=== PATIENT | female | born 1950 | race Caucasian/White ===

== ENCOUNTER 2016-11-27 10:57 | Emergency (ER) | payer MEDICARE ==
[2016-11-27 11:09] VITALS: BMI 28.3
--- NOTE | 2016-11-27 11:32 | PDOC ---
History of Present Illness - General History Source: Patient Exam Limitations: No Limitations - History of Present Illness Initial Comments: 11/27/16 11:52 The patient is a 66-year-old woman, with a significant past medical history of hypertension, hypercholesterolemia and breast Ca who presents to the emergency department via walk-in for further evaluation of a persistent 2-3 day history of cold-like symptoms. As per patient, she reports she has been experiencing intermittent fevers with an associated intermittent cough, chills, generalized body aches and nausea. Patient admits she received her pneumococcal vaccine but she did not receive her influenza vaccination this season. She denies rhinorrhea , nasal congestion, ear pain, shortness of breath, chest pain, palpitations. She denies abdominal pain, vomiting, diarrhea. She denies any urinary symptoms. <Mayr Cancino - Last Filed: 11/27/16 13:44> <Vishal Hills - Last Filed: 11/28/16 09:16> - General Chief Complaint: Cold Symptoms Stated Complaint: FEVER, CHILLS, COUGH Past History <Mary Cancino - Last Filed: 11/27/16 13:44> - Past Medical History Cancer: Yes (breast) HTN: Yes Suicide Attempt (Hx): No - Immunization History Immunization Up to Date: Yes - Psycho/Social/Smoking Cessation Hx Anxiety: No Suicidal Ideation: No Smoking History: Never smoked Hx Alcohol Use: No Drug/Substance Use Hx: No Substance Use Type: None <Vishal Hills - Last Filed: 11/28/16 09:16> - Past Medical History Allergies/Adverse Reactions: Allergies Allergy/AdvReac Type Severity Reaction Status Date / Time No Known Allergies Allergy Verified 11/27/16 11:02 Home Medications: Ambulatory Orders Metoprolol Tartrate [Lopressor -] 25 mg PO BID 01/13/15 Ibuprofen [Motrin -] 600 mg PO QID PRN #120 tablet 11/27/16 Oseltamivir Phosphate [Tamiflu] 75 mg PO BID #10 capsule 11/27/16 Review of Systems - Review of Systems Able to Perform ROS?: Yes Comments:: 11/27/16 11:52 GENERAL/CONSTITUTIONAL: Yes: +Fever(100.3 in triage) +Chills. +Generalized body aches HEAD, EYES, EARS, NOSE AND THROAT: No change in vision. No ear pain or discharge. No sore throat. CARDIOVASCULAR: No chest pain or shortness of breath. RESPIRATORY: Yes: +Cough No wheezing, or hemoptysis. GASTROINTESTINAL: Yes: +Nausea. No vomiting, diarrhea or constipation. GENITOURINARY: No dysuria, frequency, or change in urination. MUSCULOSKELETAL: No joint or muscle swelling or pain. No neck or back pain. SKIN: No rash NEUROLOGIC: Yes: +Headache. No vertigo, loss of consciousness, or change in strength/sensation. ENDOCRINE: No increased thirst. No abnormal weight change. HEMATOLOGIC/LYMPHATIC: No anemia, easy bleeding, or history of blood clots. ALLERGIC/IMMUNOLOGIC: No hives or skin allergy. <Mary Cancino - Last Filed: 11/27/16 13:44> *Physical Exam - Vital Signs Last Vital Signs Temp Pulse Resp BP Pulse Ox 100.3 F H 79 20 138/77 98 11/27/16 10:59 11/27/16 10:59 11/27/16 10:59 11/27/16 10:59 11/27/16 10:59 - Physical Exam Comments: 11/27/16 11:52 GENERAL: Awake, alert, and fully oriented, in no acute distress HEAD: No signs of trauma EYES: PERRLA, EOMI, sclera anicteric, conjunctiva clear ENT: Auricles normal inspection, hearing grossly normal, nares patent, oropharynx clear without exudates. Moist mucosa NECK: Normal ROM, supple, no lymphadenopathy, JVD, or masses LUNGS: No wheezes, and no crackles HEART: Regular rate and rhythm, normal S1 and S2, no murmurs, rubs or gallops ABDOMEN: Soft, nontender, normoactive bowel sounds. No guarding, no rebound. No masses EXTREMITIES: Normal range of motion, no edema. No clubbing or cyanosis. No cords, erythema, or tenderness NEUROLOGICAL: Cranial nerves II through XII grossly intact. Normal speech. <Mary Cancino - Last Filed: 11/27/16 13:44> - Vital Signs Last Vital Signs Temp Pulse Resp BP Pulse Ox 100.3 F H 79 20 138/77 98 11/27/16 10:59 11/27/16 10:59 11/27/16 10:59 11/27/16 10:59 11/27/16 10:59 <Vishal Hills - Last Filed: 11/28/16 09:16> ED Treatment Course - LABORATORY CBC & Chemistry Diagram: 11/27/16 12:10 11/27/16 12:22 - RADIOLOGY Radiograph Interpretation: 11/27/16 13:45 EXAM: RAD/CHEST PA & LAT Reviewed by Dr. Vishal Hills Interpreted by Dr. Elian Khan IMPRESSION: No acute pathology <Mary Cancino - Last Filed: 11/27/16 13:44> - LABORATORY CBC & Chemistry Diagram: 11/27/16 12:10 11/27/16 12:22 <Vishal Hills - Last Filed: 11/28/16 09:16> *DC/Admit/Observation/Transfer - Attestations Scribe Attestion: 11/27/16 11:52 Documentation prepared by Mary Cancino, acting as medical assistant internal medicine for Vishal Hills MD. <Mary Cancino - Last Filed: 11/27/16 13:44> - Discharge Dispostion Admit: No <Vishal Hills - Last Filed: 11/28/16 09:16> Diagnosis at time of Disposition: Influenza - Discharge Dispostion Disposition: HOME Condition at time of disposition: Stable - Prescriptions Prescriptions: Ibuprofen [Motrin -] 600 mg PO QID PRN #120 tablet PRN Reason: Fever Oseltamivir Phosphate [Tamiflu] 75 mg PO BID #10 capsule - Referrals Referrals: Thao German NP [Primary Care Provider] - - Patient Instructions Printed Discharge Instructions: Influenza Print Language: MALAYSIAN
[2016-11-27] MEDS ORDERED: SODIUM CHLORIDE 1,000 ML IV STA (11:51)
[2016-11-27] MEDS ORDERED: ACETAMINOPHEN 325 MG TABLET (FP) PO ONE (11:53)
[2016-11-27] MEDS ORDERED: ONDANSETRON 4 MG/2 ML VIAL IVPUSH ONE (11:55)
[2016-11-27] MEDS ORDERED: ACETAMINOPHEN 325 MG TABLET (FP) ONE (11:59)
[2016-11-27] MEDS ORDERED: ONDANSETRON 4 MG/2 ML VIAL ONE (11:59)
[2016-11-27 12:41] LABS: BASOPHIL 0.4 % (0-2.0); EOSINOPHIL 0.3 % (0-4.5); MCH 26.8 pg (25.7-33.7); MCHC 32.3 g/dl (32.0-36.0); MEAN PLT VOLUME 9.6 fl (7.5-11.1); NEUTROPHILS 84.6 % (42.8-82.8); PLATELET COUNT 182 K/MM3 (134-434); WHITE BLOOD COUNT 7.9 K/mm3 (4.0-10.0)
[2016-11-27 12:42] LABS: URINE APPEARANCE CLEAR; URINE BILIRUBIN NEGATIVE (NEGATIVE); URINE BLOOD NEGATIVE (NEGATIVE); URINE COLOR LTYELLOW; URINE GLUCOSE (UA) NEGATIVE (NEGATIVE); URINE KETONE NEGATIVE (NEGATIVE); URINE NITRITE NEGATIVE (NEGATIVE); URINE PROTEIN NEGATIVE (NEGATIVE); URINE UROBILINOGEN NEGATIVE E.U./dl (0.2-1.0)
[2016-11-27 12:45] LABS: URINE LEUK ESTERASE 2+ (NEGATIVE)
[2016-11-27 12:48] LABS: URINE BACTERIA RARE /hpf (NONE SEEN); URINE HYALINE CAST 1 /lpf; URINE MUCUS RARE; URINE RBC 3 /hpf (0-3); URINE WBC 27 /hpf (3-5)
[2016-11-27] MEDS ORDERED: OSELTAMIVIR PHOSPHATE 75 MG CAPSULE PO ONE (13:01)
[2016-11-27] MEDS ORDERED: OSELTAMIVIR PHOSPHATE 75 MG CAPSULE ONE (13:09)
[2016-11-27 13:25] LABS: ALBUMIN 3.6 g/dl (3.4-5.0); ANION GAP 7 (8-16); CALCIUM 8.5 mg/dL (8.5-10.1); CO2 28 mmol/L (21-32); CREATININE 0.7 mg/dL (0.55-1.02); GLUCOSE,RANDOM 94 mg/dL (74-106); SGOT/AST 22 U/L (15-37); SGPT/ALT 28 U/L (12-78)
[2016-11-27 13:27] LABS: ALK PHOS 56 U/L (45-117); BILIRUBIN,TOTAL 0.4 mg/dL (0.2-1.0); TOT PROT 7.6 g/dl (6.4-8.2)
[2016-11-27 15:02] VITALS: BP 108/72; PULSE 67; TEMP 100.1
== END 2016-11-27 15:01 | disposition home or self-care (01) ==
LOC: JER 10:57
PROC: 3E0337Z Introduction of Electrolytic and Water Balance Substance into Peripheral Vein, Percutaneous Approach (ICD-10-PCS; principal; 2016-11-27)
PROC: 3E033GC Introduction of Other Therapeutic Substance into Peripheral Vein, Percutaneous Approach (ICD-10-PCS; 2016-11-27)
DX: J09.X2 Influenza due to identified novel influenza A virus with other respiratory manifestations (principal); I10 Essential (primary) hypertension; E78.00 Pure hypercholesterolemia, unspecified; Z85.3 Personal history of malignant neoplasm of breast
CPT/HCPCS: 36415; 71020-TC; 80053; 81003; 81015; 83605; 85025; 87040; 87086; 87804; 99282-25

== ENCOUNTER 2024-12-08 13:07 | Emergency (ER) | payer MEDICARE, OTHER ==
[2024-12-08 13:17] VITALS: BP 160/75; PULSE 68; RESP 18; TEMP 97.4; BMI 29.2
[2024-12-08] MEDS ORDERED: METOCLOPRAMIDE HCL INJECTION 10 MG/2 ML VIAL ONE (14:05)
[2024-12-08] MEDS ORDERED: ACETAMINOPHEN INJECTION 100 ML ONE (14:05)
[2024-12-08 14:26] LABS: BASO % 0.5 % (0-2.0); EOS % 2.1 % (0-4.5); HEMATOCRIT 44.1 % (32.4-45.2); HEMOGLOBIN 14.3 GM/dL (10.7-15.3); LYMPH % 24.6 % (8-40); MCH 27.1 pg (25.7-33.7); MCHC 32.4 g/dl (32.0-36.0); MEAN CELL VOLUME 83.8 fl (80-96); MEAN PLT VOLUME 9.4 fl (7.5-11.1); MONO % 5.3 % (3.8-10.2); NEUT % 67.5 % (42.8-82.8); PLATELET COUNT 234 10^3/uL (134-434); RBC 5.27 M/mm3 (3.60-5.2); RDW 13.6 % (11.6-15.6); WHITE BLOOD COUNT 8.6 K/mm3 (4.0-10.0)
[2024-12-08] MEDS: SODIUM CHLORIDE 0.9% 500 ML INFUS.BAG IV ONE (14:28)
[2024-12-08] MEDS: ACETAMINOPHEN 1000 MG/100 ML BAG IVPB ONE (14:28)
[2024-12-08] MEDS: METOCLOPRAMIDE HCL INJECTION 10 MG/2 ML VIAL IVPB ONE (14:58)
[2024-12-08 15:48] LABS: CHLORIDE 106 mmol/L (98-107); POTASSIUM 3.9 mmol/L (3.5-5.1); SODIUM 140 mmol/L (136-145)
[2024-12-08 15:50] LABS: CALCIUM 9.4 mg/dL (8.5-10.1)
[2024-12-08 15:52] LABS: ANION GAP 8 mmol/L (4-13); BLOOD UREA NITROGEN 10.6 mg/dL (7-18); CO2 25 mmol/L (21-32); GLUCOSE,RANDOM 98 mg/dL (74-106); MAGNESIUM < 0.3 mg/dL (1.8-2.4)
[2024-12-08 15:55] LABS: CREATININE 0.6 mg/dL (0.55-1.3); SGOT/AST 35 U/L (15-37); SGPT/ALT 35 U/L (13-61)
[2024-12-08 15:56] LABS: BILIRUBIN,TOTAL 0.3 mg/dL (0.2-1); TOT PROT 8.3 g/dl (6.4-8.2)
[2024-12-08 15:57] LABS: ALK PHOS 66 U/L (45-117)
[2024-12-08] MEDS: MAGNESIUM SULF 50% (8.12 MEQ/2 ML-1 GM VIAL) IVPB ONE (17:17)
== END 2024-12-08 18:42 | disposition home or self-care (01) ==
LOC: JER 13:07
PROC: 3E033NZ Introduction of Analgesics, Hypnotics, Sedatives into Peripheral Vein, Percutaneous Approach (ICD-10-PCS; principal; 2024-12-08)
PROC: 3E033GC Introduction of Other Therapeutic Substance into Peripheral Vein, Percutaneous Approach (ICD-10-PCS; 2024-12-08)
DX: R51.9 Headache, unspecified (principal); Z20.822 Contact with and (suspected) exposure to COVID-19
CPT/HCPCS: 0241U-QW; 36415; 80053; 83735; 85025; 96374; 96375; 99284-25; J0131